=== PATIENT | female | born 1970 | race Caucasian/White ===

== ENCOUNTER 2017-01-13 23:02 | Emergency (ER) | payer SELFPAY ==
--- NOTE | 2017-01-14 06:58 | RAD ---
LEFT ELBOW 4 VIEWS: Date: 01/13/17 FINDINGS: No fracture, dislocation, or acute bony change seen. The bones appear normal. There is no joint effu tai. IMPRESSION: No acute findings. POS: HOME
== END 2017-01-14 00:32 | disposition home or self-care (01) ==
LOC: EDSEX → BURERS 23:02
DX: M70.22 Olecranon bursitis, left elbow (principal); F41.9 Anxiety disorder, unspecified; F32.9 Major depressive disorder, single episode, unspecified; F17.210 Nicotine dependence, cigarettes, uncomplicated; E03.9 Hypothyroidism, unspecified; K21.9 Gastro-esophageal reflux disease without esophagitis
CPT/HCPCS: 99283

== ENCOUNTER 2017-01-14 10:37 | Emergency (ER) | payer SELFPAY ==
[2017-01-14] MEDS ORDERED: Amoxicillin/Potassium Clav 875 MG TAB ONE (10:57)
== END 2017-01-14 11:06 | disposition home or self-care (01) ==
LOC: EDSEX 10:37 → BURERS 10:37
DX: S51.051A Open bite, right elbow, initial encounter (principal); S71.152A Open bite, left thigh, initial encounter; E03.9 Hypothyroidism, unspecified; K21.9 Gastro-esophageal reflux disease without esophagitis; F32.9 Major depressive disorder, single episode, unspecified; F41.9 Anxiety disorder, unspecified; F17.210 Nicotine dependence, cigarettes, uncomplicated; W54.0XXA Bitten by dog, initial encounter
CPT/HCPCS: 99283